=== PATIENT | female | born 1990 | race African-American/Black ===

== ENCOUNTER 2022-01-26 16:50 | Emergency (ER) | payer MEDICAID ==
[~2022-01-26] VITALS: Ht 170.2 cm; Wt 59.1 kg
[~2022-01-26 16:50] MED LIST: CYCL-1 PO; FAMO20TA8 PO; MONT10TA21 PO
[2022-01-26 17:28] VITALS: BP 164/118
[2022-01-26] MEDS ORDERED: EPIN0.3P3 IM (17:53)
[2022-01-26] MEDS: diphenhydrAMINE 25mg capsule PO ONE (18:00)
[2022-01-26] MEDS: predniSONE 20 mg tablet PO ONE (18:02)
== END 2022-01-26 18:12 | disposition home or self-care (01) ==
LOC: ER 16:50
DX: T78.1XXA Other adverse food reactions, not elsewhere classified, initial encounter (principal); Z72.89 Other problems related to lifestyle; Z88.6 Allergy status to analgesic agent; Z79.899 Other long term (current) drug therapy; Y92.89 Other specified places as the place of occurrence of the external cause
CPT/HCPCS: 99283; J7512; Q0163

== ENCOUNTER 2022-09-18 04:41 | Emergency (ER) | payer MEDICAID ==
[~2022-09-18] VITALS: Ht 170.2 cm; Wt 68.2 kg
[~2022-09-18 04:41] MED LIST changes: +EPIN0.3P3 IM
[2022-09-18 06:38] VITALS: BP 160/115
[2022-09-18] MEDS ORDERED: albuterol 2.5 MG/3 ML nebule NEB ONE (06:40)
--- NOTE | 2022-09-18 07:49 | NUR ---
Albuterol nebulizer order in [facility]. RN paged RT @ 1876. Pt is stable, SpO2 & RR WNL. Intermittent productive cough.
[2022-09-18] MEDS ORDERED: AZIT250T PO (07:57)
[2022-09-18] MEDS ORDERED: ALBU8HFA PO (08:03)
== END 2022-09-18 08:38 | disposition home or self-care (01) ==
LOC: ER 04:42
DX: J20.9 Acute bronchitis, unspecified (principal); Z20.822 Contact with and (suspected) exposure to COVID-19; J45.909 Unspecified asthma, uncomplicated; Z88.6 Allergy status to analgesic agent; Z79.899 Other long term (current) drug therapy
CPT/HCPCS: 71045; 87081; 87502; 87503; 87635; 87880; 94640; 99284; C9803; 94760

== ENCOUNTER 2022-11-15 08:07 | Emergency (ER) | payer MEDICAID ==
[~2022-11-15] VITALS: Ht 170.2 cm; Wt 63.6 kg
[~2022-11-15 08:07] MED LIST changes: +MONT-47 PO; -MONT10TA21 PO
--- NOTE | 2022-11-15 08:46 | NUR ---
Dr. Lopez at bedside interviewing patient
[2022-11-15] MEDS ORDERED: dexamethasone sod phosphate 10mg/ml inj IV STA (09:07)
[2022-11-15] MEDS ORDERED: LORazepam 2 mg/ml vial IV ONE (09:10)
[2022-11-15] MEDS ORDERED: famotidine 20mg tablet PO ONE (09:10)
[2022-11-15] MEDS ORDERED: normal saline 1000ML IV soln IVB STA (09:14)
[2022-11-15] MEDS ORDERED: methylPREDNISolone sod succ 125mg/2ml vial IV ONE (09:15)
[2022-11-15] MEDS ORDERED: famotidine/PF 10 mg/ml inj IV ONE (09:15)
--- NOTE | 2022-11-15 09:21 | NUR ---
Per Dr. Lopez, she only wanted me to carry out the orders that she ordered. Solumetrol, Pepcid IV, IVF
--- NOTE | 2022-11-15 10:50 | NUR ---
Assisted patient to the bathroom to urinate. Periwipes and specimen cup given to patient, pt was instructed to give me a clean urine sample.
[2022-11-15 11:19] VITALS: BP 155/120
[2022-11-15 11:47] LABS: URINE AMPHETAMINE SCREEN POSITIVE (Neg); URINE BARBITUATE SCREEN NEGATIVE (Neg); URINE BENZODIAZEPINES SCREEN NEGATIVE (Neg); URINE CANNABINOID SCREEN POSITIVE (Neg); URINE COCAINE SCREEN NEGATIVE (Neg); URINE METHADONE SCREEN NEGATIVE (Neg); URINE OPIATE SCREEN NEGATIVE (Neg); URINE PHENCYCLIDINE SCREEN NEGATIVE (Neg)
[2022-11-15] MEDS ORDERED: DIPH25CA83 PO (13:12)
[2022-11-15] MEDS ORDERED: PRED20TA PO (13:12)
[2022-11-15] MEDS ORDERED: FAMO-128 PO (13:12)
== END 2022-11-15 13:31 | disposition home or self-care (01) ==
LOC: ER 08:07
DX: T78.1XXA Other adverse food reactions, not elsewhere classified, initial encounter (principal); L29.9 Pruritus, unspecified; R07.0 Pain in throat; J45.909 Unspecified asthma, uncomplicated; F17.200 Nicotine dependence, unspecified, uncomplicated; F12.90 Cannabis use, unspecified, uncomplicated; Z88.6 Allergy status to analgesic agent; X58.XXXA Exposure to other specified factors, initial encounter
CPT/HCPCS: 80305; 93005; 96374; 96375; 99284; J2930; J3490; J7030

== ENCOUNTER 2023-02-01 17:57 | Emergency (ER) | payer MEDICAID ==
[~2023-02-01] VITALS: Ht 170.2 cm; Wt 65.9 kg
[~2023-02-01 17:57] MED LIST changes: +DIPH25CA83 PO; +FAMO-128 PO
[2023-02-01 18:07] VITALS: BP 150/113
--- NOTE | 2023-02-01 18:41 | NUR ---
PT REFUSED LAB DRAW PER [employer] MECHANIC, STATED THAT SHE FELT LIKE SHE WAS GOING TO PASS OUT AND DID NOT WANT TO BE POKED AGAIN.
== END 2023-02-01 20:05 | disposition left against medical advice (07) ==
LOC: ER 17:58
DX: O26.899 Other specified pregnancy related conditions, unspecified trimester (principal); Z3A.00 Weeks of gestation of pregnancy not specified; R10.9 Unspecified abdominal pain; Z53.21 Procedure and treatment not carried out due to patient leaving prior to being seen by health care provider
CPT/HCPCS: 99281